=== PATIENT | female | born 1970 | race Caucasian/White ===

== ENCOUNTER 2023-12-23 06:09 | Emergency (ER) | payer OTHER ==
[~2023-12-23] VITALS: Ht 167.6 cm; Wt 112.0 kg
[2023-12-23 06:14] VITALS: BP 138/85; PULSE 82; RESP 18; TEMP 97.3; O2SAT 99
[2023-12-23 06:54] VITALS: BP 138/85; PULSE 82; RESP 18; TEMP 97.3; O2SAT 99
== END 2023-12-23 07:10 | disposition home or self-care (01) ==
LOC: MED 06:09
DX: S61.301A Unspecified open wound of left index finger with damage to nail, initial encounter (principal); W26.0XXA Contact with knife, initial encounter; Y93.89 Activity, other specified; Y92.89 Other specified places as the place of occurrence of the external cause; Y99.8 Other external cause status
CPT/HCPCS: 90471; 90715; 99283